=== PATIENT | male | born 1960 | race Caucasian/White ===

== ENCOUNTER 2018-04-14 22:37 | Inpatient (IN) | payer MEDICAID ==
[~2018-04-14] VITALS: Ht 165.1 cm; Wt 84.4 kg
[~2018-04-14 22:37] MED LIST: ACYCLOVIR 800800 M1 PO; ALEVE220 MG; NORCO 5-325 TA1 EACH PO; PREDNISONE 20 M20 M1 PO
[2018-04-14] MEDS ORDERED: PRILOSEC 20 MG20 MG PO (22:42)
[2018-04-14] MEDS ORDERED: NAPROSYN500 MG PO (22:42)
[2018-04-14] MEDS ORDERED: LOPRESSOR25 PO (22:43)
[2018-04-14] MEDS ORDERED: LISINOPRIL2.5 MG PO (22:43)
[2018-04-14] MEDS ORDERED: LIPITOR 20 MG T20 M1 PO (22:43)
[2018-04-14] MEDS ORDERED: AMITRIPTYLINE H10 M3 PO (22:44)
[2018-04-14 22:45] VITALS: BP 150/85
[2018-04-14 23:04] LABS: ABSOLUTE BASOPHILS 0.1 thou/uL (0.0-0.2); ABSOLUTE EOSINOPHILS 0.2 thou/uL (0.0-0.7); ABSOLUTE LYMPHOCYTES 2.1 thou/uL (0.8-5.3); ABSOLUTE MONOCYTES 0.7 thou/uL (0.0-1.2); ABSOLUTE NEUTROPHILS 4.3 thou/uL (1.6-8.1); BASOPHILS 1.2 %; EOSINOPHILS 2.5 %; HEMATOCRIT 43.4 % (42.0-52.0); HEMOGLOBIN 15.1 gm/dL (14.0-18.0); MCH 33.3 pg (26.0-34.0); MCHC 34.8 g/dL (28.0-37.0); MCV 95.6 fL (80.0-100.0); MONOCYTES 9.6 %; MPV 8.1 fl. (7.2-11.1); NUCLEATED RBCS 0 /100WBC; PLATELET COUNT* 211 thou/uL (150-400); POLYS 58.7 %; RBC 4.53 mil/uL (4.50-6.00); RDW-CV 13.1 % (10.5-14.5); WBC 7.4 thou/uL (4.0-11.0)
[2018-04-14 23:19] LABS: ANION GAP 9 mmol/L (7-16); BUN 24 mg/dL (7-18); CALCIUM 8.5 mg/dL (8.5-10.1); CHLORIDE 104 mmol/L (98-107); CO2 26 mmol/L (21-32); CREATININE 1.2 mg/dL (0.6-1.3); GLUCOSE 126 mg/dL (70-99); POTASSIUM 3.7 mmol/L (3.5-5.1); SODIUM 139 mmol/L (136-145)
[2018-04-14 23:20] LABS: PROTIME 10.5 Seconds (9.20-11.50)
[2018-04-14 23:30] LABS: ALBUMIN 3.3 g/dL (3.4-5.0); ALKALINE PHOSPHATASE 55 U/L (46-116); LIPASE 111 U/L (73-393); NT-PRO BRAIN NAT PEPTIDE 10 pg/mL (<300); SGOT 15 U/L (15-37); SGPT 26 U/L (30-65); TOTAL BILIRUBIN 0.2 mg/dL (<0.1-1.0); TOTAL PROTEIN 6.8 g/dL (6.4-8.2); TROPONIN-I LEVEL <0.06 ng/mL (<0.06)
[2018-04-15] VITALS (20 sets, daily range): BP systolic 94–137; BP diastolic 60–88
--- NOTE | 2018-04-15 08:15 | NUR ---
ASSUMED PT. CARE AND RECEIVED REPORT AT 0730. PT A/OX4, VSS, MONITOR ON TRACING SR WITH PVC. PT. DENIES CURRENT CP/SOB. ON 2L NC @ 97%. HEPARIN GTT INFUSING AT 1000 UNIT/HR. FULL ASSESSMENT COMPLETED, REFER TO CHARTING. PT. NPO FOR CV CONSULT, PT. AWARE AND STATES UNDERSTANDING OF CURRENT PLAN. DISCUSSED POSSIBLE HEART CATH TODAY. CALL LIGHT IN REACH, WILL CONTINUE WITH PLAN OF CARE.
--- NOTE | 2018-04-15 11:27 | EKG ---
[place] [address] ELECTROCARDIOGRAM REPORT Name: KARLA COPELAND JR Room: [address] ADM IN M.R.#: [id number] Admission: 04/14/18 Attend Phys: Kingsley Whitney MD Discharge: Date of : 62 Report #: [id number] THIS REPORT FOR: //name// [facility] ED Test Date: 2018-04-14 Test Time: 22:41:56 Pat Name: KARLA COPELAND Department: Room: [facility] Gender: M Ocean Fishing Guide: Maribel WOODRUFF : 1960 Requested By: Jaswinder Kraft Order Number: [id number] MD: Phong Machado Measurements Intervals [place] Rate: 71 P: 71 NE: 173 QRS: 21 QRSD: 88 T: 89 QT: 400 QTc: 435 Interpretive Statements Sinus rhythm ST elevation, consider inferior injury Compared to ECG 06/29/2008 08:12:44 ST (T wave) deviation now present Myocardial infarct finding still present Electronically Signed On 04-15-2018 11:27:22 LEARNING TECHNOLOGIST by Phong Machado [email or web address] <ELECTRONICALLY SIGNED> By: Phong Machado MD, [facility] 04/15/18 1127 2241 2241 Phong Machado MD, [facility] /EPI
--- NOTE | 2018-04-15 15:06 | NUR ---
Pt is A&O. Resides at home with his . Independent. No DME. No hx of HH or SNF. Pt is on disability for chronic back pain. Goal is home at in. [facility].
--- NOTE | 2018-04-15 16:04 | EKG ---
[place] [address] ELECTROCARDIOGRAM REPORT Name: KARLA COPELAND JR Room: [address] ADM IN M.R.#: [id number] Admission: 04/14/18 Attend Phys: Kingsley Whitney MD Discharge: Date of : 62 Report #: [id number] THIS REPORT FOR: //name// [facility] Test Date: 2018-04-15 Test Time: 13:41:00 Pat Name: KARLA COPELAND Department: Room: [address] Gender: M Home Economics Expert: MATILDA : 1960 Requested By: Phong Machado Order Number: [id number] Carlene MD: Phong Machado Measurements Intervals [place] Rate: 86 P: 57 RI: 151 QRS: -5 QRSD: 86 T: 36 QT: 370 QTc: 443 Interpretive Statements Sinus rhythm Low voltage, precordial leads Compared to ECG 04/14/2018 22:41:56 ST (T wave) deviation no longer present Electronically Signed On 04-15-2018 16:03:50 UNISAW OPERATOR by Phong Machado [email or web address] <ELECTRONICALLY SIGNED> By: Phong Machado MD, [facility] 04/15/18 1603 1341 1341 Phong Machado MD, [facility] /EPI
--- NOTE | 2018-04-15 19:00 | NUR ---
PT. STABLE THROUGH OUT SHIFT. RIGHT RADIAL CATH COMPLETED AND PT. TOLERATED WELL. RIGHT WRIST NOW WITH GAUZE/TEGADERM DRESSING WNL. NAUSEA/VOMITING TREATED WTIH ZOFRAN X 1 WITH RELIEF. PT. TOLERATED CLEAR LIQUIDS THE REST OF THE SHIFT. PT. STATES HE DOES NOT WANT TO STAY INPATIENT FOR FURTHER TESTING WEDNESDAY AND THAT HE CHECKED OUT AMA AFTER LAST CATH. HOURLY ROUNDING COMPLETED THROUGH OUT THE DAY FOR PT. SAFETY.
[2018-04-16] VITALS: BP 94/57
[2018-04-16 04:00] VITALS: BP 140/85
--- NOTE | 2018-04-16 04:42 | NUR ---
ASSUMED CARE OF PT AFTER REPORT AT 1930. PT A&OX4. VSS. PHYSICAL ASSESSMENT COMPLETED AND CHARTED. PT ON RA WITH 95% O2 SAT. PT TRACING SR PVC ON TELE. PT UP ADLIB TO RESTROOM. PT COMPLAINED OF GENERALIZED BODY PAIN WITH PAIN SCALE OF 3/10-PAIN MEDS GIVEN PER MAR WITH PARTIAL RELIEF. HOURLY ROUNDING OBSERVED. CALL LIGHT WITHIN REACH.
[2018-04-16 04:56] LABS: ABSOLUTE EOSINOPHILS 0.1 thou/uL (0.0-0.7); ABSOLUTE LYMPHOCYTES 1.3 thou/uL (0.8-5.3); ABSOLUTE MONOCYTES 0.9 thou/uL (0.0-1.2); ABSOLUTE NEUTROPHILS 6.1 thou/uL (1.6-8.1); BASOPHILS 0.5 %; EOSINOPHILS 0.7 %; HEMATOCRIT 40.7 % (42.0-52.0); HEMOGLOBIN 14.2 gm/dL (14.0-18.0); LYMPHOCYTES 16.1 %; MCH 33.5 pg (26.0-34.0); MCHC 34.9 g/dL (28.0-37.0); MCV 96.1 fL (80.0-100.0); MONOCYTES 10.4 %; MPV 8.7 fl. (7.2-11.1); NUCLEATED RBCS 0 /100WBC; PLATELET COUNT* 183 thou/uL (150-400); POLYS 72.3 %; RBC 4.23 mil/uL (4.50-6.00); RDW-CV 12.9 % (10.5-14.5); WBC 8.4 thou/uL (4.0-11.0)
[2018-04-16 05:36] LABS: ANION GAP 6 mmol/L (7-16); BUN 13 mg/dL (7-18); CALCIUM 8.1 mg/dL (8.5-10.1); CHLORIDE 105 mmol/L (98-107); CHOLESTEROL 128 mg/dL (<200); CO2 28 mmol/L (21-32); CREATININE 1.2 mg/dL (0.6-1.3); GLUCOSE 108 mg/dL (70-99); HDL CHOLESTEROL 30 mg/dL (>40); LDL CHOLESTEROL 78 mg/dL (<100); POTASSIUM 3.6 mmol/L (3.5-5.1); SODIUM 139 mmol/L (136-145); TC:HDL 4.3 Ratio (Not establshd); TRIGLYCERIDE 103 mg/dL (<150); VLDL 21 mg/dL (<40)
[2018-04-16 05:57] LABS: SERUM ASSESSMENT Clear
[2018-04-16 06:04] LABS: TROPONIN-I LEVEL 22.55 ng/mL (<0.06)
[2018-04-16 08:00] VITALS: BP 139/83
[2018-04-16 09:46] VITALS: BP 139/83
--- NOTE | 2018-04-16 10:08 | CON ---
[address] [address] CONSULTATION Name: KARLA COPELAND JR Room: [address] IN M.R.#: [id number] Admission: 04/14/18 Attend Phys: Kingsley Whitney MD Discharge: Date of : 62 Report #: [id number] THIS REPORT FOR: //name// CC: Santhosh Whitney DATE OF SERVICE: 04/15/2018 CARDIOLOGY CONSULTATION HISTORY OF PRESENT ILLNESS: The patient is a 57-year-old white male who came into the Emergency Room last night complaining of chest pain. The old records are not available. The history is obtained from the patient and his . Apparently 9 years ago, he was at work when he felt some pain in his chest. He was brought here to [place] by private vehicle. He was found to have coronary artery disease and had a coronary stent placed. He states he saw a sales operations lead for a few years, but has not seen one now for several years. He is not very active because of chronic back pain. For the past 3 weeks, he has had intermittent chest pain. It usually lasts from 10-30 minutes and resolves; however, he went to bed last night. He awakened about 10:00 with a discomfort in his chest, went down his left arm became nauseated, short of breath. He called an ambulance. He was brought here to [place] and admitted. He notes the pain improved, but never completely went away. He still has some minor chest discomfort. He denied any recent trauma to his chest. The pain is not related to food. He has had no blood in the stool. He denies any significant exertional dyspnea, palpitations, syncope. He does have a chronic cough, productive sputum. PAST MEDICAL HISTORY: He has had 2 back surgeries. He has had shoulder surgery. He had dilatation of urethral stricture. He has a history of hypertension, hyperlipidemia. MEDICATIONS: Include metoprolol, lisinopril, atorvastatin, Elavil, Naprosyn. ALLERGIES: He has no known drug allergies. FAMILY HISTORY: Positive for heart disease. 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 He is on disability because of chronic back pain. 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 He is . He and his live in [place], [place]. He smokes a pack of cigarettes a day. No alcohol abuse. REVIEW OF SYSTEMS: He does have no history of stroke. He has a chronic cough, productive sputum. No history of liver disease, kidney [place] [address] CONSULTATION Name: KARLA COPELAND JR Room: [address] IN ..#: [id number] Admission: 04/14/18 Attend Phys: Kingsley hWitney MD Discharge: Date of : 62 Report #: [id number] had some black stools in the past after drinking a pint of vodka. No history of cancer. No psychiatric illness. PHYSICAL EXAMINATION: GENERAL: Revealed a middle-aged male, appeared in no distress. VITAL SIGNS: He had a blood pressure of 100/70, pulse 60. He was afebrile. HEENT: He is anicteric. Conjunctivae pink. Mucous membranes moist. NECK: Neck veins do not appear distended. No carotid bruits. Neck was supple. CHEST: Clear to auscultation. CARDIOVASCULAR: Regular rate and rhythm. ABDOMEN: Soft. EXTREMITIES: Had no edema. Posterior tibial pulse 2+ bilaterally. SKIN: Warm, dry. NEUROLOGIC: Nonfocal. LYMPH: No adenopathy. MUSCULOSKELETAL: No joint effusion. DIAGNOSTIC DATA: His ECG showed a sinus rhythm. There was early repolarization noted. There is ST segment depression in I and aVL. His workup last night, he had a portable chest x-ray that showed normal heart size, clear lung chan. LABORATORY DATA: Sodium 139, creatinine 1.2. His troponin initially 0.06, is now 1.0. White blood cell count 7.4, hemoglobin 15.1. IMPRESSION AND RECOMMENDATIONS: 1. Non-ST elevation myocardial infarction. History of coronary stenting. Recommend repeat cardiac catheterization. 2. Hypertension. The patient is on a beta pedro and DWAYNE inhibitor. 3. Hyperlipidemia. The patient is on a statin drug. 4. Tobacco abuse. 5. Chronic bronchitis. 6. Chronic back pain. <ELECTRONICALLY SIGNED> By: Phong Machado MD, [facility] 04/16/18 1008 0858 0915Davistephanie Machado MD, FACC /nt
[2018-04-16] MEDS ORDERED: PLAVIX 75 MG TA75 M1 PO (10:16)
[2018-04-16] MEDS ORDERED: ASPIR 8181 MG PO (10:17)
[2018-04-16] MEDS ORDERED: ATORVASTATIN CA40 MG PO (10:17)
--- NOTE | 2018-04-16 10:25 | NUR ---
PT OUT AT DESK REQUESTING TO LEAVE. NO DC ORDERS AT THIS TIME. PT BELIGERENT TO STAFF AND STATES HE DOES NOT WANT TO LEAVE. PT ATTEMPTING TO LEAVE WITH IV IN. INFORMED PT HE NEEDS IV REMOVED BEFORE LEAVING. PT STATES HE IS LEAVING AMA BUT REFUSES TO SIGN FORM. DR PINON AWARE
--- NOTE | 2018-04-16 10:33 | CARD ---
[address] [address] CARDIAC CATH REPORT Name: KARLA COPELAND JR Room: [address]#: [id number] Admission: 04/14/18 Attend Phys: Kingsley Whitney MD Discharge: 04/16/18 Date of : 62 Report #: [id number] THIS REPORT FOR: //name// APPROVED REPORT Study performed: 04/15/2018 11:10:15 Patient Details Patient Status: In-Patient Room #: The patient is a 57 year-old male Event Personnel Phong Machado Tagman, May Al RTMaynor Scrub, Robb Cook (R) Scrmaulik, Darline Fitzgerald TYPESETTING SUPERVISOR Monitor, Aylin Serna Fagoting Machine Operator Procedures Performed Left Heart Cath w/or w/o Coronaries LHC KALI Place w/wo Plasty Single RCA Hemostasis with Hemoband Indication Non-STEMI , Chest pain Risk Factors Coronary Artery Disease, Tobacco History () Previous Procedures/Diagnoses Previous PCI Admission/Lab Medications/Medications given during procedure Glycoprotein IllbIlla Inhibitors, Heparin Unfract. Procedure Narrative The patient was brought electively to the Cardiac Catheterization Laboratory and was prepped and draped in a sterile manner. The right wrist was infiltrated with 2% Lidocaine subcutaneous anesthesia. A Slender Glidesheath sheath was inserted into the right radial artery. Coronary angiography was performed using coronary diagnostic catheters. The right coronary system was accessed and visualized with a Diagnostic 6 Fr JR4 catheter. The left coronary system was accessed and visualized with a Diagnostic 6Fr JL4 catheter. The left ventricle was accessed and visualized with a Diagnostic 6Fr angled pigtail catheter. Left ventricular/Aortic Valve gradient assessed via catheter pullback. [place] [address] CARDIAC CATH REPORT Name: KARLA COPELAND JR Room: [address]#: [id number] Admission: 04/14/18 Attend Phys: Kingsley Whitney MD Discharge: 04/16/18 Date of : 62 Report #: [id number] projection. Closure device was deployed with a 6 Fr vascband. The patient tolerated the procedure well and there were no complications associated with the procedure. There was no hematoma. Patient developed atrial fibrillation during the procedure. Digoxin 0.5 mg. was given IV and the patient converted back to NSR. Intraoperative Conscious Sedation Sedation start time: 1157 Case end Time: 1248 Fentanyl 25 mcg Versed 2 mg Fluoro Time: 72896 minutes Dose: DAP 7.0 cGycm2 1053 mGy Contrast Type and Amount: Omnipaque 210 ml Coronary Angiography The patient's coronary anatomy is co- dominant. Diagnostic Cath Left Main 0% stenosis LAD 60% mid stenosis Diagonal 2 60% ostial stenosis OM1 90% proximal stenosis OM2 60% ostial stenosis Right Coronary stent noted proximally that appeared to be acutely occluded 100% with thrombus 50% mid stenosis noted Left Ventriculography The left ventricular ejection fraction is estimated to be 50-55%. Left ventricular wall motion abnormalities are present. There is no mitral insufficiency. mild inferior wall hypokinesis noted Hemodynamics The aortic pressure is 93/59 mmHg with a mean of 73 mmHg. The left ventricular pressure is 92/8 mmHg with a mean of mmHg. The left ventricular end diastolic pressure is 9 mmHg. There was no gradient across the aortic valve upon pullback. Pullback from the left ventricle to the aorta revealed no gradient across the aortic valve. PCI Technique Lesion Anticoagulation was achieved with Heparin. iv bolus of aggrastat given Patient was preloaded with Plavix. Percutaneous coronary intervention was performed on the proximal [place] [address] CARDIAC CATH REPORT Name: KARLA COPELAND JR Room: [address]#: [id number] Admission: 04/14/18 Attend Phys: Kingsley Whitney MD Discharge: 04/16/18 Date of : 62 Report #: [id number] lesion stenosis prior to intervention was 100% with JENNIFER 0 flow. A 6FR JCR 4 100CM Guide Catheter was used to engage the rca ostium. A BMW 190cm Interventional Guidewire was used to cross the lesion. BALLOON DILATION A Balloon catheter Trek RX 2.5 X 12 was inserted and inflated up to 8.00atm for 23seconds. Repeat angiography revealed the following post-dilatation results: 90% stenosis. Additional Inflation: 8.00atm for 15seconds. STENT DEPLOYMENT A drug-eluting stent Xience Colette 2.5X23mm was inserted and inflated up to 8.00atm for 20seconds. Repeat angiography revealed the following post-stent deployment results: 0% stenosis. Additional Inflation: 9.00atm for 14seconds. Additional Inflation: 13.00atm for 17seconds. COMMENTS Staining noted in the RV branch that arose from within the stent at the end of the procedure with JENNIFER grade I flow Conclusion 1. mild LV inferior wall hypokinesis noted 2. acute occlusion of a previous stent in the proximal RCA 3. 60% stenosis of the mid lad, and 90% stenosis of the proximal first marginal branch 4. successful placement of a drug eluting stent in the proximal RCA Recommendations Return at a later date for elective stenting of the first marginal branch of the circumflex Medications Administered Clopidogrel <ELECTRONICALLY SIGNED> By: Phong Machado MD, [facility] 04/16/18 1032 1032 1032Davistephanie Machado MD, FACC /INF
--- NOTE | 2018-04-16 11:13 | NUR ---
VSS, ASSUMED CARE IN THE AM, ASSESSMENT PERFORMED AND CHARTED, FALL PRECAUTIONS IN PLACE, PT IS A&O4 TRACING SR ON THE MONITOR, ON RA, DENIES ANY PIAN, IS UP AD DOUG AND WANTS TO GO HOME, PT ENDED LEAVING AMA, IV AND TELE MONITOR TAKEN OFF, CALLED DOC, AND PT REFUSED TO SING AMA PAPER.
[2018-04-17 02:05] LABS: GLYCOHEMOGLOBIN (HGB A1C) 5.5 % (4.8-5.6)
--- NOTE | 2018-04-18 10:20 | EKG ---
[place] [address] ELECTROCARDIOGRAM REPORT Name: KARLA COPELAND JR Room: [address] DIS IN M.R.#: [id number] Admission: 04/14/18 Attend Phys: Kingsley Whitney MD Discharge: 04/16/18 Date of : 62 Report #: [id number] THIS REPORT FOR: //name// [facility] Test Date: 2018-04-16 Test Time: 08:22:17 Pat Name: KARLA COPELAND Department: Room: [address] Gender: M Dietary Tech: : 1960 Requested By: Phong Machado Order Number: [id number] Carlene MD: Phong Machado Measurements Intervals [place] Rate: 70 P: 66 NV: 141 QRS: -13 QRSD: 86 T: 5 QT: 366 QTc: 395 Interpretive Statements Sinus rhythm Low voltage, precordial leads Abnormal inferior Q waves Compared to ECG 04/15/2018 13:41:00 no change Electronically Signed On 04-18-2018 10:20:07 CONTACT WORKER LITHOGRAPHY by Phong Machado [email or web address] <ELECTRONICALLY SIGNED> By: Phong Machado MD, [facility] 04/18/18 1020 1 1 Phong Machado MD, [facility] /EPI
== END 2018-04-16 10:26 | disposition left against medical advice (07) | DRG 247 ==
LOC: M.ERS 22:37 → M.2W 23:39 → M.TBA-ER 23:39 → M.2W 23:50
PROVIDERS: Emergency Medicine; Family Medicine; ADMIT Internal Medicine
PROC: B2111ZZ Fluoroscopy of Multiple Coronary Arteries using Low Osmolar Contrast (ICD-10-PCS; principal; 2018-04-15)
PROC: 4A023N7 Measurement of Cardiac Sampling and Pressure, Left Heart, Percutaneous Approach (ICD-10-PCS; principal; 2018-04-15)
PROC: B2151ZZ Fluoroscopy of Left Heart using Low Osmolar Contrast (ICD-10-PCS; principal; 2018-04-15)
PROC: 027034Z Dilation of Coronary Artery, One Artery with Drug-eluting Intraluminal Device, Percutaneous Approach (ICD-10-PCS; principal; 2018-04-15)
DX: I21.4 Non-ST elevation (NSTEMI) myocardial infarction (principal); I10 Essential (primary) hypertension; I25.110 Atherosclerotic heart disease of native coronary artery with unstable angina pectoris; E78.00 Pure hypercholesterolemia, unspecified; E78.5 Hyperlipidemia, unspecified; I48.91 Unspecified atrial fibrillation; J42 Unspecified chronic bronchitis; G89.29 Other chronic pain; M54.9 Dorsalgia, unspecified; K21.9 Gastro-esophageal reflux disease without esophagitis; F17.210 Nicotine dependence, cigarettes, uncomplicated; Z53.21 Procedure and treatment not carried out due to patient leaving prior to being seen by health care provider; I25.2 Old myocardial infarction; Z95.5 Presence of coronary angioplasty implant and graft; Z87.81 Personal history of (healed) traumatic fracture; Z79.899 Other long term (current) drug therapy; Z71.6 Tobacco abuse counseling

== ENCOUNTER → 2018-04-21 | Outpatient (CLI) | payer MEDICAID ==
[~2018-04-21] VITALS: Ht 167.6 cm; Wt 82.6 kg
[~2018-04-21] MED LIST changes: +AMITRIPTYLINE H10 M3 PO; +ASPIR 8181 MG PO; +ATORVASTATIN CA40 MG PO; +DIFLUCAN200 MG PO; +LIPITOR 20 MG T20 M1 PO; +LISINOPRIL2.5 MG PO; +LOPRESSOR25 PO; +NAPROSYN500 MG PO; +PLAVIX 75 MG TA75 M1 PO; +PRILOSEC 20 MG20 MG PO
[2018-04-21 09:41] LABS: HEMATOCRIT 44.1 % (42.0-52.0); HEMOGLOBIN 15.5 gm/dL (14.0-18.0); MCHC 35.2 g/dL (28.0-37.0); MCV 96.5 fL (80.0-100.0); MPV 8.1 fl. (7.2-11.1); RBC 4.57 mil/uL (4.50-6.00); RDW-CV 12.9 % (10.5-14.5)
[2018-04-21 10:00] LABS: ANION GAP 8 mmol/L (7-16); BUN 17 mg/dL (7-18); CALCIUM 8.8 mg/dL (8.5-10.1); CHLORIDE 103 mmol/L (98-107); CO2 28 mmol/L (21-32); CREATININE 1.2 mg/dL (0.6-1.3); GLUCOSE 99 mg/dL (70-99); POTASSIUM 4.1 mmol/L (3.5-5.1); SODIUM 139 mmol/L (136-145)
[2018-04-21 10:02] LABS: APTT 29.1 Seconds (25.0-31.3); PROTIME 10.2 Seconds (9.20-11.50)
[2018-04-21 10:04] LABS: ALBUMIN 3.5 g/dL (3.4-5.0); ALKALINE PHOSPHATASE 56 U/L (46-116); CHOLESTEROL 145 mg/dL (<200); HDL CHOLESTEROL 32 mg/dL (>40); LDL CHOLESTEROL 98 mg/dL (<100); SGOT 13 U/L (15-37); SGPT 21 U/L (30-65); TC:HDL 4.5 Ratio (Not establshd); TOTAL BILIRUBIN 0.6 mg/dL (<0.1-1.0); TOTAL PROTEIN 7.6 g/dL (6.4-8.2); TRIGLYCERIDE 76 mg/dL (<150); VLDL 15 mg/dL (<40)
[2018-04-21 10:06] LABS: SERUM ASSESSMENT Clear
[2018-04-21 12:40] VITALS: BP 104/64
[2018-04-21 13:05] VITALS: BP 115/74
[2018-04-21 13:30] VITALS: BP 117/68
[2018-04-21 14:00] VITALS: BP 114/72
[2018-04-21 14:18] LABS: HEMATOCRIT 38.6 % (42.0-52.0); MCH 33.4 pg (26.0-34.0); MCHC 34.5 g/dL (28.0-37.0); MCV 97.1 fL (80.0-100.0); MPV 8.2 fl. (7.2-11.1); RBC 3.98 mil/uL (4.50-6.00); RDW-CV 12.7 % (10.5-14.5); WBC 7.3 thou/uL (4.0-11.0)
[2018-04-21 14:20] LABS: HEMOGLOBIN 13.3 gm/dL (14.0-18.0)
[2018-04-21 14:27] LABS: CALCIUM 7.6 mg/dL (8.5-10.1); CREATININE 1.1 mg/dL (0.6-1.3)
[2018-04-21 14:47] LABS: HEMATOCRIT 41.7 % (42.0-52.0); HEMOGLOBIN 14.2 gm/dL (14.0-18.0)
--- NOTE | 2018-04-21 15:49 | EKG ---
[place] [address] ELECTROCARDIOGRAM REPORT Name: KARLA COPELAND JR Room: [facility]#: [id number] Admission: 04/21/18 Attend Phys: Phong Machado MD, F Discharge: Date of : 62 Report #: [id number] THIS REPORT FOR: //name// [facility] Test Date: 2018-04-21 Test Time: 10:19:54 Pat Name: KARLA COPELAND Department: Room: Gender: M Fret Saw Operator: : 1960 Requested By: Phong Machado Order Number: [id number] Reading MD: Phong Machado Measurements Intervals [place] Rate: 69 P: 40 MA: 145 QRS: -20 QRSD: 96 T: 4 QT: 390 QTc: 418 Interpretive Statements Sinus rhythm Inferior infarct, old Compared to ECG 04/16/2018 08:22:17 no change Electronically Signed On 04-21-2018 15:49:28 OPTICS TECHNICAL OFFICER by Phong Machado [email or web address] <ELECTRONICALLY SIGNED> By: Phong Machado MD, [facility] 04/21/18 1549 1019 1019 Phong Machado MD, FACC /EPI
--- NOTE | 2018-04-21 15:52 | EKG ---
[place] [address] ELECTROCARDIOGRAM REPORT Name: KARLA COPELAND JR Room: [facility]#: [id number] Admission: 04/21/18 Attend Phys: Phong Machado MD, F Discharge: Date of : 62 Report #: [id number] THIS REPORT FOR: //name// [facility] Test Date: 2018-04-21 Test Time: 13:01:03 Pat Name: KARLA COPELAND Department: Room: Gender: M Music Cataloguer: : 1960 Requested By: Phong Machado Order Number: [id number] Reading MD: Phong Machado Measurements Intervals [place] Rate: 74 P: 38 HI: 148 QRS: -23 QRSD: 93 T: 17 QT: 396 QTc: 440 Interpretive Statements Sinus rhythm Borderline left axis deviation Low voltage, precordial leads Electronically Signed On 04-21-2018 15:52:39 SWEATBAND SHAPER by Phong Machado [email or web address] <ELECTRONICALLY SIGNED> By: Phong Machado MD, [facility] 04/21/18 1552 1301 1301 Phong Machado MD, FACC /EPI
--- NOTE | 2018-04-21 18:33 | CARD ---
[address] [address] CARDIAC CATH REPORT Name: KARLA COPELAND JR [id number] Admission: 04/21/18 Attend Phys: Phong Machado MD, F Discharge: Date of : 62 Report #: [id number] THIS REPORT FOR: //name// APPROVED REPORT Study performed: 04/21/2018 10:49:09 Patient Details Patient Status: Out-Patient Room #: The patient is a 57 year-old male Event Personnel Phong Machado Hot Wire Glass Tube Cutter, Gavi Ma Monitor, Dileep Draper Monitor, Nayeli Noriega RN RN, May Al RTR Scrub, Kingsley Varela Accounts Receivable Manager Procedures Performed cath pci Indication Chest pain Risk Factors Arterial Hypertension, Hypercholesterolemia, Coronary Artery Disease, Tobacco History () Previous Procedures/Diagnoses Previous PCI Admission/Lab Medications/Medications given during procedure Heparin Unfract. Procedure Narrative The patient was brought electively to the Cardiac Catheterization Laboratory and was prepped and draped in a sterile manner. The right wrist was infiltrated with 1% Lidocaine subcutaneous anesthesia. A Slender Glidesheath sheath was inserted into the right radial artery. Coronary angiography was performed using coronary diagnostic catheters. The right coronary system was accessed and visualized with a Diagnostic catheter. The left coronary system was accessed and visualized with a Guide xb3.5 catheter. The left ventricle was accessed and visualized with a JR4 6fr catheter. Left ventricular/Aortic Valve gradient assessed via catheter pullback. Closure device was deployed with a 6 Fr Vasc-Band Lng 27cm. The patient tolerated the procedure well and there were no complications [address] [address] CARDIAC CATH REPORT Name: KARLA COPELAND JR Room: [facility]#: [id number] Admission: 04/21/18 Attend Phys: Phong Machado MD, F Discharge: Date of : 62 Report #: [id number] associated with the procedure. There was no hematoma. Intraoperative Conscious Sedation Sedation start time: 1140 Case end Time: 1221 Versed 2 mg Fluoro Time: 4.8 minutes Dose: DAP 59413 cGycm2 1000 mGy Contrast Type and Amount: Visipaque 130 ml Coronary Angiography The patient's coronary anatomy is co- dominant. Diagnostic Cath Left Main 0% stenosis LAD 40% proximal and 50% mid stenosis Diagonal 1 50% ostial stenosis OM2 80% proximal stenosis OM3 small vessel with 70% ostial stenosis Right Coronary proximal stent with 0% stenosis, 30% mid and 30% distal stenosis noted Ramus small vessel with 50% mid stenosis Left Ventriculography Left Ventriculography was not performed. Hemodynamics The aortic pressure is 105/74 mmHg with a mean of 87 mmHg. The left ventricular pressure is 109/10 mmHg with a mean of mmHg. The left ventricular end diastolic pressure is 14 mmHg. There was no gradient across the aortic valve upon pullback. Pullback from the left ventricle to the aorta revealed no gradient across the aortic valve. PCI Technique Lesion Anticoagulation was achieved with Heparin. Patient was preloaded with Plavix. Percutaneous coronary intervention was performed on the second obtuse marginal branch segment. The lesion stenosis prior to intervention was 80% with JENNIFER 3 flow. A 6FR XB 3.5 100CM Guide Catheter was used to engage the lm ostium. A IG: BMW 190cm Interventional Guidewire was used to cross the lesion. BALLOON DILATION A Balloon catheter Mini Trek RX 2.0 X 8 was inserted and inflated up to 12.00atm for 26seconds. [place] [address] CARDIAC CATH REPORT Name: DINORAHKARLA JR Room: [facility]#: [id number] Admission: 04/21/18 Attend Phys: Phong Machado MD, F Discharge: Date of : 62 Report #: [id number] post-dilatation results: 40% stenosis. STENT DEPLOYMENT A drug-eluting stent Xience Colette 2.87Z79kx was inserted and inflated up to 18.00atm for 11seconds. Repeat angiography revealed the following post-stent deployment results: 0% stenosis. Additional Inflation: 8.00atm for 12seconds. Additional Inflation: 11.00atm for 23seconds. Final angiography reveals 0 % stenosis with JENNIFER 3 flow. Conclusion 1. patent stent in the rca 2. successful placement of a drug eluting stent in the 2nd marginal branch of the circumflex Recommendations Cardiac Rehabilitation Referral Aggressive Medical Therapy Medications Administered Clopidogrel <ELECTRONICALLY SIGNED> By: Phong Machado MD, [facility] 04/21/181832 32 1833Dbettina Machado MD, [facility] /INF
--- NOTE | 2018-04-22 17:22 | D ---
[address] [address] DISCHARGE SUMMARY Name: KARLA COPELAND JR Room: [facility]#: [id number] Admission: 04/21/18 Attend Phys: Phong Machado MD, F Discharge: Date of : 62 Report #: [id number] THIS REPORT FOR: //name// CC: Santhosh Machado DATE OF SERVICE: 04/21/2018 DISCHARGE DIAGNOSES: 1. Hypertension. 2. Hyperlipidemia. 3. Coronary artery disease. 4. Tobacco abuse. CONSULTANTS: None. PROCEDURES: Left heart catheterization with placement of a single drug-eluting stent in the second marginal branch of the circumflex via the radial approach. HISTORY OF PRESENT ILLNESS: The patient is a 57-year-old white male who was brought to the outpatient department to undergo attempts at coronary stenting. The patient initially presented several years ago with chest pain here at [facility]. He was found to have coronary artery disease and had a stent placed in his right coronary artery. 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 He is not very active because of chronic back pain. He was no longer taking aspirin and continued to smoke. Recently, the patient was having intermittent chest pain. It usually resolved after 10 minutes. However, on the evening of 04/14/2018, he awakened at 10:00 with chest pain, arm discomfort and shortness of breath. He called EMS and was brought to [facility] and admitted. He ruled in for a non-STEMI. I saw him in consultation and recommended cardiac catheterization. This was performed on 04/16/2018 through the right radial artery. There was only mild inferior wall hypokinesis noted with an ejection fraction of 50%. The LAD had a mid 60% stenosis. The circumflex was codominant and the second marginal branch had an mid 80% stenosis. There was a 70% narrowing of the ostium of the third marginal branch. There was a stent in the proximal right coronary artery that appeared to be acutely occluded 100% with thrombus. He was given heparin and Aggrastat. I performed angioplasty and placed a new drug-eluting stent in the proximal right coronary artery. He tolerated this well and he was loaded with clopidogrel. Prior to discharge, the patient was seen by cardiac rehabilitation. The following day, he had no significant hematoma in his wrist. Workup during that hospitalization included a portable chest x-ray that showed normal heart size and clear lung chan. His lab work included potassium of 3.6, creatinine 1.1, glucose 87. Liver function studies were normal. His peak troponin was 22. Cholesterol 145, triglyceride 76, HDL 32, LDL 98. TSH 2.1. Glycosylated hemoglobin 5.5. [place] [address] DISCHARGE SUMMARY Name: KARLA COPELAND JR Room: [facility]hell#: [id number] Admission: 04/21/18 Attend Phys: Phong Machado MD, F Discharge: Date of : 62 Report #: [id number] count 7.4, hemoglobin 15.1. The patient was discharged on his home medications that included his metoprolol, lisinopril, atorvastatin, Elavil. In addition, he was started on aspirin 81 mg a day and Plavix 75 mg a day. He was given nitroglycerin to take as needed for chest pain. I strongly recommended he attempt to stop smoking. He was discharged and the plan was to have the patient return as an outpatient for stenting of the second marginal branch of circumflex. The third marginal branch was a small vessel and had an ostial location of its stenosis and the plan was to treat it medically. The patient notes that since his discharge, he had only brief episodes of chest pain. PAST MEDICAL HISTORY: Significant for 2 back surgeries, shoulder surgery, urethral dilatation, hypertension, hyperlipidemia. MEDICATIONS: Include metoprolol, lisinopril, atorvastatin, Elavil, Naprosyn, aspirin and Plavix. ALLERGIES: No known drug allergies. PHYSICAL EXAMINATION: On admission: VITAL SIGNS: Blood pressure was 110/60, pulse was 60. CHEST: Clear to auscultation. CARDIAC: Regular rate and rhythm. ABDOMEN: Soft. EXTREMITIES: No edema. SKIN: Warm and dry. NEUROLOGIC: Nonfocal. ECG showed a sinus rhythm, evidence of previous inferior infarction. LABORATORY WORK: His sodium 142, potassium 4.1, creatinine 1.1, glucose 87. Liver function studies were normal. Troponin was down to 0.88. His white blood cell count 7.3, hemoglobin 14.2. HOSPITAL COURSE: The patient was brought to the outpatient department. I performed a repeat left heart catheterization from the right radial artery. No ventriculogram was performed. The LAD again only had a 50% mid stenosis. The second marginal branch and circumflex had 80% stenosis. The stent in the right coronary had no restenosis. He was given heparin and then placed a new drug-eluting stent in the second marginal branch. He tolerated this well. A Vasc band was placed. Followup EKG showed no changes. Prior to discharge, the patient is ambulating, had no further complaints. He was discharged on his home medications that consisted of metoprolol and he was on 25 mg twice a day, lisinopril 2.5 mg a day, Lipitor was continued at 20 mg a day. He was continued on aspirin 81 mg a day, Plavix 75 mg a day and he was given nitroglycerin to take as needed for chest pain. I strongly recommended that he attempt to stop smoking and he was referred to cardiac rehabilitation. He was to contact my [address] [address] DISCHARGE SUMMARY Name: KARLA COPELAND JR Room: [facility]#: [id number] Admission: 04/21/18 Attend Phys: Phong Machado MD, F Discharge: Date of : 62 Report #: [id number] office if he had recurrent chest pain or bleeding. He was discharged to return to the care of Dr. Santhosh Yeager for routine medical care. I plan on seeing him in the Cardiology Clinic in 1 month for followup. His prognosis is guarded due to his diffuse coronary artery disease. At the time of discharge, he had a blood pressure of 110/70, pulse of 80. <ELECTRONICALLY SIGNED> By: Phong Machado MD, FACC 04/22/18 [id number] Machado MD, FACC /nt
== END | disposition home or self-care (01) ==
LOC: M.CL 09:10
PROVIDERS: Internal Medicine Cardiovascular Disease
DX: I25.10 Atherosclerotic heart disease of native coronary artery without angina pectoris (principal); I10 Essential (primary) hypertension; E78.5 Hyperlipidemia, unspecified; Z72.0 Tobacco use; Z79.899 Other long term (current) drug therapy; Z79.82 Long term (current) use of aspirin